=== PATIENT | female | born 1955 | race Two or more races ===

== ENCOUNTER 2024-12-30 12:22 | Emergency (ER) | payer MEDICARE, SELFPAY ==
[2024-12-30 12:27] VITALS: BP 142/87; PULSE 82; TEMP 36.6; O2SAT 98; BMI 34.8
--- NOTE | 2024-12-30 12:34 | CT_ITS ---
The [address] [address] Patient Name: LYNNE DU MRN: [id number] date: 1955 Sex: F Assigned Patient Location: ED.MAIN Current Patient Location: ED.MAIN Accession/Order Number: [id number] Exam Date: 12/30/2024 13:03 Report Date: 12/30/2024 13:47 At the request of: ZONIA MCKAY MD Procedure: CT abdomen pelvis wo con CT ABDOMEN AND PELVIS WITHOUT INTRAVENOUS CONTRAST: CLINICAL HISTORY: Upper abdominal pain with nausea. COMPARISON: Chest performed earlier today TECHNIQUE: Spiral images were obtained through the abdomen and pelvis without intravenous contrast. This CT exam was performed using one or more following dose reduction techniques: Automated exposure control, adjustment of the mA and/or kV according to patient size, or use of iterative reconstruction technique. FINDINGS: Lung Bases: [Bibasilar atelectasis/scarring. Moderate size hiatal hernia.] Organs:Suboptimal evaluation due to lack of IV contrast. Liver demonstrates a small cyst noted. Gallbladder is contracted. Spleen pancreas and adrenal glands all appear unremarkable. Kidneys demonstrate no stone or hydronephrosis. Aorta appears normal in caliber.[ GI: Distal stomach is grossly unremarkable. Small bowel appears nondilated. Appendix is normal. Colonic diverticulosis.[ Pelvis:[Urinary bladder and uterus appear unremarkable. No adnexal mass.] Peritoneum/Retroperitoneum:No free air or free fluid or lymphadenopathy.[ Abd wall/Bones:Abdominal wall demonstrates no acute findings. Osseous structures demonstrate degenerative change.[ CT/CT abdomen pelvis wo con IMPRESSION: No acute process. No evidence of small bowel obstruction. Moderate size hiatal hernia. Colonic diverticulosis. Impression dictated by: Calvin Palomares Jr., D.O. 12/30/2024 1:47 PM Dictation Location: [employer] Electronically authenticated by: [id number] Y Date: 12/30/2024 13:47
--- OUTSIDE RECORDS SUMMARY | 2024-12-30 12:41 | XMS_ITS ---
Author Name Interface, [id number] lity Address [place] breakthroughs[place] [address] [facility] Address [place] breakthroughs[place] [address] Allergies and Adverse Reactions Medication/Group Name Reaction Severity Date No known allergies Plan Date Type Value 07/19/2023 APPOINTMENT LAB 07/19/2023 APPOINTMENT 3M OV/LAB 04/19/2023 APPOINTMENT LAB 04/19/2023 APPOINTMENT 3W OV/LAB 04/19/2023 LABORDER CBC w/auto diff with reflex 04/19/2023 KASEY LARA smear review 04/19/2023 LABORDER CMP 07/19/2023 LABORDER CBC w/auto diff with reflex 07/19/2023 KASEY LARA smear review 07/19/2023 LABORDER CMP Reason for Visit 3M OV/LAB Encounters Date Name 04/19/2023 Osteolytic lesion Diagnostic Results Date Type Test Units Lower Limit Upper Limit Result Flag Comments Status Ordered By Specimen Source Lab Address 04/19 CBC w/aut o diff with refle x WBC x10^3/ uL 4.8 10.8 6.6 FINAL [facility] Whole [facility] [address] [facility] [place] [address] CLIA#45D [id number] 04/19 CBC w/aut o diff with refle x RBC x10^6/ uL 4.2 5.4 4.64 FINAL [facility] Whole Blood [facility]. [address] [facility] [place] [facility] [place] [address] CLIA#45D [id number] 04/19 CBC w/aut o diff with refle x HGB g/dl 12.0 16.0 13.6 FINAL [facility] Whole Blood [facility]. [address] [facility] [place] [address] CLIA#45D [id number] 04/19 CBC w/aut o diff with refle x HCT % 37.0 47.0 42.3 FINAL [facility] Whole Blood [facility]. [address] [place] [address] CLIA#45D [id number] 04/19 CBC w/aut o diff with refle x MCV fL 81.0 99.0 91 FINAL [facility] Whole Blood [facility]. [facility] [address] [place] [address] CLIA#45D [id number] 04/19 CBC w/aut o diff with refle x MCH pg 27.0 31.0 29.3 FINAL [facility] Whole Blood [facility] [address] [facility] [place] [place] [address] CLIA#45D [id number] 04/19 CBC w/aut o diff with refle x MCHC g/dL 33.0 37.0 32.2 Low FINAL [facility] Whole Blood [place] [address] [address] [facility] [place] [place] [address] CLIA#45D [id number] 04/19 CBC w/aut o diff with refle x RDW % 10.5 14.5 13.6 FINAL [facility] Whole Blood [facility] [address] [place] [address] CLIA#45D [id number] 04/19 CBC w/aut o diff with refle x PLT x10^3/ uL 130.0 400.0 313 FINAL [facility] Whole Blood [place] [address] [address] [facility] [place] [address] CLIA#45D [id number] 04/19 CBC w/aut o diff with refle x MPV fL 9.4 12.3 8.4 Low FINAL [facility] Whole Blood [facility] [address] [place] [address] CLIA#45D [id number] 04/19 CBC w/aut o diff with refle x Dominik % % 40.0 77.0 55.1 FINAL [facility] Whole Blood [place] [address] [address] [facility] [place] [place] [address] CLIA#45D [id number] 04/19 CBC w/aut o diff with refle x LY % % 15.0 41.0 31.6 FINAL [facility] Whole Blood [place] [address] [address] [facility] [place] [place] [address] CLIA#45D [id number] 04/19 CBC w/aut o diff with refle x MO % % 3.0 11.0 9.2 FINAL [facility] Whole Blood [place] [address] [address] [facility] [place] [address] CLIA#45D [id number] 04/19 CBC w/aut o diff with refle x EO % % 0.0 3.0 3.3 High FINAL [facility] Whole Blood [place] [address] [address] [facility] [place] [place] [address] CLIA#45D [id number] 04/19 CBC w/aut o diff with refle x BA % % 0.0 1.0 0.5 FINAL [facility] Whole Blood [place] [address] [address] [facility] [place] [place] [address] CLIA#45D [id number] 04/19 CBC w/aut o diff with refle x IG % % 0.0 0.5 0.3 FINAL [facility] Whole Blood [place] [address] [address] [facility] [place] [place] [address] CLIA#45D [id number] 04/19 CBC w/aut o diff with refle x NRBC % % 0.0 0.2 0.00 FINAL [facility] Whole Blood [place] [address] [address] [facility] [place] [place] [address] CLIA#45D [id number] 04/19 CBC w/aut o diff with refle x Dominik # (ANC) 10^3/u L 1.5 6.5 3.7 FINAL [facility] Whole Blood [facility] n. [facility] [address] [place] [address] CLIA#45D [id number] 04/19 CBC w/aut o diff with refle x LY # 10^3/u L 1.2 3.4 2.1 FINAL [facility] Whole Blood [facility] n. [facility] [address] [place] [address] CLIA#45D [id number] 04/19 CBC w/aut o diff with refle x MO # 10^3/u L 0.0 1.0 0.6 FINAL [facility] Whole Blood [facility] n. [facility] [address] [place] [address] CLIA#45D [id number] 04/19 CBC w/aut o diff with refle x EO # 10^3/u L 0.0 0.3 0.2 FINAL [facility] Whole Blood [facility]. [facility] [address] [place] [address] CLIA#45D [id number] 04/19 CBC w/aut o diff with refle x BA # 10^3/u L 0.0 0.2 0.0 FINAL [facility] Whole Blood [facility] n. [facility] [address] [place] [address] CLIA#45D [id number] 04/19 CBC w/aut o diff with refle x IG # 10^3/u L 0.0 0.03 0.02 FINAL [facility] Whole Blood [facility] [address] [place] [address] CLIA#45D [id number] 04/19 CBC w/aut o diff with refle x NRBC, absol [place], x 10^3/ uL 10^3/u L 0.0 0.01 0.00 FINAL [facility] Whole Blood [place] [address] [address] [place] [address] CLIA#45D [id number] 04/19 CMP Sodiu m mmol/L 136.0 145.0 139 FINAL [facility] Plasma [facility] n. [facility] [address] [facility] [place] [place] [address] CLIA#45D [id number] 04/19 CMP Potas sium mmol/L 3.5 5.1 4.9 FINAL [facility] Plasma [facility] n. [facility] [address] [facility] [place] [place] [address] CLIA#45D [id number] 04/19 CMP Chlor mikey mmol/L 97.0 107.0 102 FINAL [facility] Plasma [facility]. [facility] [address] [facility] [place] [address] CLIA#45D [id number] 04/19 CMP CO2 mmol/L 21.0 32.0 30.40 FINAL [facility] Plasma [facility]. [facility] [address] [facility] [place] [address] CLIA#45D [id number] 04/19 CMP Anion gap 11.50 FINAL [facility] Plasma [facility]. [facility] [address] [facility] [place] [address] CLIA#45D [id number] 04/19 CMP BUN mg/dl 7.0 18.0 29 High FINAL [facility] Plasma [facility]. [facility] [address] [facility] [place] [place] [address] CLIA#45D [id number] 04/19 CMP Creat inine , mg/dL mg/dl 0.55 1.3 1.21 FINAL [facility] Plasma [facility] n. [facility] [address] [facility] [place] [address] CLIA#45D [id number] 04/19 CMP GFR estim ate ml/min /1.73m ^2 49 Low Result based on the eGFR 2020 calculati on.60-89 mL/min/1. 73m^2 without kidney damage may be normal.60 -89 mL/min/1. 73m^2 for 3 months or more, along with kidney damage, may indicate early kidney disease.C alculatio n modified to the 2020 formula effective 07/30/22. FINAL [facility] Plasma [facility] n. [address] [place] [address] CLIA#45D [id number] 04/19 CMP BUN/C reati nine ratio ratio 23.97 FINAL [facility] Plasma [facility] n. [address] [facility] [place] [place] [address] CLIA#45D [id number] 04/19 CMP Gluco se mg/dl 74.0 106.0 89 FINAL [facility] Plasma [facility] n. [address] [facility] [place] [address] CLIA#45D [id number] 04/19 CMP Calci um mg/dl 8.5 10.1 10.10 FINAL [facility] Plasma [facility] n. [address] [facility] [place] [place] [address] CLIA#45D [id number] 04/19 CMP Album in g/dl 3.4 5.0 3.7 FINAL [facility] Plasma [facility] n. [address] [facility] [place] [address] CLIA#45D [id number] 04/19 CMP Alkal ine phosp hatas e U/L 46.0 116.0 121 High FINAL [facility] Plasma [facility] n. [address] [facility] [place] [place] [address] CLIA#45D [id number] 04/19 CMP AST/S GOT U/L 15.0 37.0 35 FINAL [facility] Plasma [facility] n. [address] [facility] [place] [address] CLIA#45D [id number] 04/19 CMP Total prote in g/dL 6.4 8.2 8.40 High FINAL [facility] Plasma [facility] n. [address] [place] [address] CLIA#45D [id number] 04/19 CMP Bilir ubin, total mg/dL 0.2 1.0 0.60 FINAL [facility] Plasma [facility] n[address] [place] [address] CLIA#45D [id number] 04/19 CMP Globu ernesto g/dl 2.2 4.2 4.70 High FINAL [facility] n. [address] [place] [address] CLIA#45D [id number] 04/19 CMP A/G ratio Ratio 0.8 2.0 0.8 FINAL [facility] n. [address] [place] [address] CLIA#45D [id number] 04/19 CMP ALT/S GPT U/L 14.0 59.0 31 FINAL [facility] n. [address] [place] [address] CLIA#45D [id number] Medications Date Name Route Dose Frequency Instructions Start Date End Date Status [place] 1-QIW-INX-Fish Oil Oral Delayed Release 300 mg-1,000 mg orally 3.0 daily active Esomeprazole (Magnesium) Oral Delayed Release Capsule orally 40.0 mg daily active Lisinopril Oral orally 40.0 mg daily active Amlodipine Oral orally 5.0 mg daily a ctive Levocetirizine Oral orally 5.0 mg daily active Lidocaine-Priloca ine Topical Cream 2.5 %-2.5 % topically 1.0 once active Atorvastatin Oral orally 40.0 mg daily active Hydroxyzine HCl Oral orally 50.0 mg 3 times per day prn itching active Problems Diagnosis Status Date of Diagnosis Resolution Date Osteolytic lesion Active Vital Signs Date Type Value 04/19/2023 Body Temperature 98.00 04/19/2023 Heart Beat 96.00 04/19/2023 Respiratory Rate 18.00 04/19/2023 Intravascular Systolic 177 04/19/2023 Intravascular Diastolic 97 04/19/2023 BSA 1.82 04/19/2023 Weight 184.20 04/19/2023 Height 61.00 04/19/2023 BMI 34.80 04/19/2023 Pain Scale 0.00 Notes Section * HemOnc Follow Up - [facility] [address] [address] P: F: PATIENT: LYNNE DU : 1955 Date of Service: 04/19/2023 Referring Provider: Bhumi Moreland MD?? Chief Complaint: Principal Diagnosis: * Osteolytic lesion ( ICD-10:M86.68 ;Other chronic osteomyelitis, other site ) Diagnosis*: Treatment History: ? Treatment History*: Pathology: History of Present Illness: Patient with past medical history significant for hyperlipidemia, hypertension and diabetes mellitus.?? It seems the patient was admitted to the hospital at [facility]??03/05/2023.?? The scan showed possibility of lytic lesion to the left??iliac bone. Bone scan was done which was negative. 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 ??SPEP, UPEP and free light chain was done which was negative. ??With the patient does not suspect having multiple myeloma. Patient denies any hemoptysis, hematemesis, rectal bleeding, ??or hematuria. The patient denies any dizziness, chills, fever, or night sweats. The patient denies any diplopia, hearing problems, oropharyngeal soreness, or jaundice, ??chest pain, ??palpitations, and shortness of breath or cough, dysphagia, nausea, vomiting, constipation, diarrhea, abdominal pain, or distention, dysuria, incontinence, or frequency. Interval History: Past Medical History: Lytic Lesion?? Hypercalcemia Hyperlipidemia?? Diabetes Mellitus II?? Hypertension?? Obesity?? Osteopenia?? History of Newberry's Palsy? Acute Kidney Failure?? Gastritis?? Past Surgical History: * 2003, Procedure: Hernia repair, NOS Past Surgical History*: MANAGER OF PHARMACY History: Medications: * Amlodipine Oral 5 mg orally daily * Atorvastatin Oral 40 mg orally daily * Hydroxyzine HCl Oral 50 mg orally 3 times per day prn itching * Lisinopril Oral 40 mg orally daily * Esomeprazole (Magnesium) Oral Delayed Release Capsule 40 mg orally daily * Levocetirizine Oral 5 mg orally daily * Lidocaine-Prilocaine Topical Cream 2.5 %-2.5 % topically once * Fish Oil ([place] 4-ZBE-WVH-Fish Oil Oral Delayed Release 300 mg-1,000 mg) orally daily Medications reviewed and reconciled with patient. 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 Alcohol Rare?? Denies Drugs?? Family History: * Father: * Mother: * Sister 1: - Kidney cancer * Son 1: Alive and Well - Thyroid cancer Family History*: ROS: GENERAL: The patient denies any dizziness, chills, fever, or night sweats. HEENT: The patient denies any diplopia, hearing problems, oropharyngeal soreness, or jaundice. CARDIOPULMONARY: The patient denies any chest pain, palpitations, and shortness of breath or cough. GASTROINTESTINAL: The patient denies any dysphagia, nausea, vomiting, constipation, diarrhea, abdominal pain, or distention. GENITOURINARY: No dysuria, incontinence, or frequency. MUSCULOSKELETAL: The patient denies muscle or joint aches. The patient denies pitting edema. SKIN: The patient denies any rash or pruritus. NEUROLOGICAL: The patient denies any headache or double vision. Patient with difficulty hearing Vitals: Height: 61 in; Weight: 184.2 lb; Blood pressure: 177/97, Pulse: 96, Temperature: 98 F, Respirations: 18, Pain Scale: 0 Karnofsky: Not Assessed Physical Exam: GENERAL: ??No acute respiratory distress. VITAL SIGNS: ??Reviewed and stable. HEENT: ??The sclerae are clear. ??The pupils are equal and reactive to light. ??The oropharyngeal cavity is within normal limits. NECK: ??Supple without lymphadenopathy. CHEST: Lung is clear bilaterally there is no wheezing or crackles. HEART: ??Sounds are regular and rhythmic. ABDOMEN: ??No guarding or rigidity. ??Bowel sounds positive. EXTREMITIES: ??No pitting edema. ??No petechial lesions or bruises. SKIN: ??No bruises, rash, or petechial lesions. NEUROLOGICAL: ??The patient is alert and oriented. ??No focal deficits. ??Muscle strength is 5/5. LYMPH NODES: ??There is no lymphadenopathy could be felt in the neck, supraclavicular, or axillary. Labs: CBC Lab Results 04/19/2023 04/03/2023 03/27/2023 CBC WBC x 10^3/uL 6.6 7.0 RBC x 10^6/uL 4.64 4.33 NRBC, absolute, x 10^3/uL 0.00 0.00 NRBC % /100 wbc 0.00 0.00 HGB g/dL 13.6 12.7 HCT % 42.3 39.0 MCV fL 91 90 MCH pg 29.3 29.3 MCHC g/dL 32.2 (L) 32.6 (L) RDW % 13.6 13.8 PLT x 10^3/uL 313 305 MPV fL 8.4 (L) 8.4 (L) Dominik % 55.1 67.8 LY % 31.6 22.3 MO % 9.2 7.1 EO % 3.3 (H) 1.7 IG % 0.3 0.4 Dominik # (ANC) x 10^3/uL 3.7 4.8 BA % 0.5 0.7 MO # x 10^3/uL 0.6 0.5 EO # x 10^3/uL 0.2 0.1 BA # x 10^3/uL 0.0 0.1 IG # x 10^3/uL 0.02 0.03 LY # x 10^3/uL 2.1 1.6 Chemistries Lab Results 04/19/2023 04/03/2023 03/27/2023 Chemistries Glucose mg/dL 89 125 (H) BUN mg/dL 29 (H) 18 Creatinine, mg/dL 1.21 1.05 BUN/Creatinine ratio 23.97 17.14 Sodium mmol/L 139 140 Potassium mmol/L 4.9 3.5 Chloride mmol/L 102 101 CO2 mmol/L 30.40 29.00 Anion gap 11.50 13.50 Calcium mg/dL 10.10 10.00 Albumin g/dL 3.7 3.6 Total protein g/dL 8.40 (H) 8.10 Globulin g/dL 4.70 (H) 4.50 (H) A/G ratio 0.8 0.8 Bilirubin, total mg/dL 0.60 0.60 Alkaline phosphatase U/L 121 (H) 105 AST/SGOT U/L 35 31 ALT/SGPT U/L 31 28 GFR estimate mL/min/1.73m2 49 (L) 58 (L) Tumor Markers None Today Labs*: Imaging: Problem List: * Osteolytic lesion ( ICD-10:M86.68 ;Other chronic osteomyelitis, other site ) Impression: 1. ??CT scan of the abdomen done 03/05/2023 showing lytic lesion to the left iliac bone.?? Bone scan was done which was negative., ??SPEP, UPEP and free light chain was done which was negative for any monoclonal protein. 2.?? Hypertension 3.?? Hyperlipidemia 4. ??Diabetes mellitus Plan: 1.?? Peripheral blood smear showed red blood cells to be normocytic normochromic. ??There was no fragment cell or schistocyte. ??There is no teardrop cell.?There is no pelger-Huet cell. ??White blood cell with no blasts. ??Platelet was normal in morphology and count. 2. ??There was hypersegmented neutrophils. ??This patient to continue on folic acid 1 mg p.o. dailyand vitamin B12 1000 mcg p.o. daily. 3.?? 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 ??SPEP, UPEP and free light chain was done which was negative forany monoclonal protein. ??There is no need for bone marrow biopsy to be done. 4. ??I reviewed the results of CT scan of the abdomen and??chest. ??There is a lytic lesion??to theleft iliac crest. ??There is smaller??lesion to the??right iliac crest.?? Which could be consistentwith osteoporosis or Paget disorder. 5. ??This patient to have bone density scan to be done.?? This patient could have osteopenia or osteoporosis and the lesion in the bone could be due to that. ??So we will follow-up with the result. 6. ??This patient to be on calcium and vitamin D 7. ??There is no need for any more investigation at this time. ??Patient to follow-up with me in 6 months. 8. ??We explained to the patient that if she have severe pain to the lower back or??if she is losing weight unexpectedly or for night sweats to follow-up with us as soon as possible. 9.?? Patient to follow-up with primary care physician for other comorbidity. Procedure: . This dictation was prepared using [employer] voice recognition software. As a result, errors may occur. When identified, these errors have been corrected. While every attempt is made to correct errors during dictation, errors may still exist. Sergio Castillo MD ? Send copy of note to: Bhumi Moreland MD?? . 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 Temperature: 98 F (36.67 C) tympanic. Pulse: 96 (/min) brachial sitting. Blood pressure: 177/97 (mm Hg) right arm Regular. Entered by Rita Baugh LPN 04/19/2023 08:43 Time: 08:18. Weight: 184.2 lb (83.55 kg). Height: 61 in (154.94 cm). BMI: 34.8 (kg/m2) . BSA: 1.82 (m2) . Temperature: 98 F (36.67 C). Pulse: 96 (/min) . Respirations: 18 (/min) . Blood pressure: 177/97 (mm Hg). Pain Scale: 0. Entered by Autumn Walton 04/19/2023 08:19 Patient Assessment : Positive results Assessment : Labs Verified: Yes, Alert, oriented with appropriate behavior. Negative results Assessment : Gait Changes. Denies Neuropathy , Pain -0-No pain, Fatigue , Anxiety/Depression , Fever, Chills or Night Sweats ,Signs of Infection , Skin Changes , Dizziness , Headaches , Nausea , Breathing Changes , Cough , Mouth Sores/Stomatitis/Mucositis , Changes in Appetite , Vomiting , Diarrhea , Constipation , Urinary Changes , Bleeding . Entered By Rita Baugh LPN on 08:43 Free Text Note : follow up as per patient voiced no concerns at this time of visit/rglvn Entered By Rita Baugh LPN on 08:43
--- OUTSIDE RECORDS SUMMARY | 2024-12-30 12:41 | XMS_ITS | Clinical Summary ---
Author Organization [facility] Address [address] [place] [address] Phone Care Team Providers Care Doll Maker Name Role Phone Bhumi Moreland MD Primary Care Provider [phone] Allergies No known active allergies Family History Medical History Relation Name Comments Kidney cancer Sister Thyroid cancer Son Relation Name Status Comments Sister Son Alive Social History Tobacco Use Types Packs/Day Years Used Date Smoking Tobacco: Never Assessed Sex and Gender Information Value Date Recorded Sex Assigned at Not on file Gender Identity Not on file Sexual Orientation Not on file Plan of Treatment Not on file Care Teams Doll Maker Relationship Specialty Start Date End Date Bhumi Moreland MD [address] [place] [address] PCP - General Family Medicine 04/15/24
--- OUTSIDE RECORDS SUMMARY | 2024-12-30 12:41 | XMS_ITS | CCD ---
Author Name Interface, [id number] lity Address [place] [address] Organization [facility] Address [place] [address] Care Team Providers Care Certified Nurses Aide Name Role Phone Sergio Castillo MD Unavailable Unavailable Allergies and Adverse Reactions Medication/Group Name Reaction Severity Date No known allergies Reason for Visit 3M OV/LAB Medications Date Name Route Dose Frequency Instructions Start Date End Date Status Esomeprazole (Magnesium) Oral Delayed Release Capsule orally 40.0 mg daily active Hydroxyzine HCl Oral orally 50.0 mg 3 times per day prn itching active Amlodipine Oral orally 5.0 mg daily a ctive Ewing 0-BZZ-OXG-Fish Oil Oral Delayed Release 300 mg-1,000 mg orally 3.0 daily active Levocetirizine Oral orally 5.0 mg daily active Atorvastatin Oral orally 40.0 mg daily active Lidocaine-Priloca ine Topical Cream 2.5 %-2.5 % topically 1.0 once active Lisinopril Oral orally 40.0 mg daily active Problems Diagnosis Status Date of Diagnosis Resolution Date Osteolytic lesion Active Social History Date Name Value 03/27/2023 Sex Female
--- NOTE | 2024-12-30 12:44 | ECG_ITS ---
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
--- NOTE | 2024-12-30 12:45 | XR_ITS ---
[address] [address] Patient Name: LYNNE DU MRN: [id number] date: 1955 Sex: F Assigned Patient Location: ED.MAIN Current Patient Location: ED.MAIN Accession/Order Number: [id number] Exam Date: 12/30/2024 13:03 Report Date: 12/30/2024 13:15 At the request of: ZONIA MCKAY MD Procedure: XR chest 1V Single view chest: CLINICAL HISTORY: sob COMPARISON: None FINDINGS: Heart appears normal in size. No lung consolidation pneumothorax pleural effusion or free air. Hiatal hernia. XR/XR chest 1V IMPRESSION: NO ACUTE FINDINGS. Impression dictated by: Calvin Palomares Jr., DKeatonOKeaton 12/30/2024 1:15 PM Dictation Location: [place] [address] Electronically authenticated by: [id number] Y Date: 12/30/2024 13:15
[2024-12-30 13:10] LABS: Hematocrit 37.9 % (36.0-48.0); Hemoglobin 12.8 g/dL (12.0-16.0); Immature Granulocytes Abs Auto 0.03 10^3/uL (0.00-0.03); Immature Granulocytes Pct Auto 0.4 % (0.0-0.5); Lymphocytes Absolute Auto 1.2 10^3/uL (1.2-3.8); Mean Corpuscular HGB Conc 33.8 g/dL (29.9-35.2); Mean Corpuscular Hemoglobin 29.8 pg (26.7-34.0); Mean Corpuscular Volume 88.3 fL (81.0-99.0); Platelet Count 285 10^3/uL (150-450); Red Blood Count 4.29 10^6/uL (4.20-5.40); White Blood Count 7.9 10^3/uL (4.0-11.0)
[2024-12-30 13:25] LABS: Alanine Aminotransferase 25 U/L (14-59); Albumin Globulin Ratio 0.7; Albumin Level 3.3 g/dL (3.4-5.0); Alkaline Phosphatase 113 U/L (46-116); Anion Gap 16.3; Aspartate Amino Transferase 42 U/L (15-37); Blood Urea Nitrogen 24.0 mg/dL (7.0-18.0); Calcium 9.3 mg/dL (8.5-10.1); Carbon Dioxide 23.9 mmol/L (21.0-32.0); Chloride 103 mmol/L (98-107); Estimated GFR (African America 47 (>=60 mL/min/1.73m^2); Estimated GFR (Non-African Ame 38 (>=60 mL/min/1.73m^2); Globulin 4.6 g/dL; Glucose 98 mg/dL (74-106); Potassium 5.2 mmol/L (3.5-5.1); Sodium 138 mmol/L (136-145); Total Protein 7.9 g/dL (6.4-8.2)
--- NOTE | 2024-12-30 13:36 | ED.ABDPAIN1 ---
HPI - Abdominal Pain General Chief Complaint: Abdominal Pain Stated Complaint: ABDOMINAL PAIN Time Seen by Provider: 12/30/24 12:34 Source: patient Mode of arrival: walk-in Limitations: no limitations History of Present Illness HPI narrative: The patient is coming to the ER with multiple concerns as she is visiting here from [place]. She came here almost 7 days ago by a road trip. The patient apparently also had a surgery for her hiatal hernia in September. She mentioned that for the last 7 days she has been having some epigastric discomfort and pain associated with shortness of breath and sense of difficulty breathing on minimal activity The patient also have some decreased p.o. intake ,she does not have any constipation and she regularly have bowel movement daily The patient denies any fever chills any coughing When pointing to her abdomen the patient is pointing to the epigastric area for the pain although the patient mentioned that the pain is crampy-like and is not present all the time. The patient had decreased energy for the last week as well and tiredness with minimal activity Related Data Home Medications ?Medication ?Instructions ?Recorded ?Confirmed atorvastatin 40 mg tablet 40 mg PO DAILY 12/30/24 12/30/24 famotidine 40 mg tablet 40 mg PO DAILY 12/30/24 12/30/24 levocetirizine 5 mg tablet 5 mg PO DAILY 12/30/24 12/30/24 lisinopril 40 mg tablet 40 mg PO DAILY 12/30/24 12/30/24 pantoprazole 40 mg tablet,delayed 40 mg PO DAILY 12/30/24 12/30/24 release Allergies Allergy/AdvReac Type Severity Reaction Status Date / Time No Known Drug Allergies Allergy Verified 12/30/24 12:27 Review of Systems ROS Status of ROS 10 or more systems reviewed and unremarkable except as noted in history and below PFSH PFS Social History Little interest or pleasure in doing things: not at all Feeling down, depressed, or hopeless: not at all Exam Narrative Exam Narrative: Nurses notes and vital signs reviewed and patient is not hypoxic. General: Well-appearing and in no apparent distress. Skin: Warm, dry, no pallor noted. No rash. Head: Normocephalic, atraumatic. Neck: Supple, non-tender. Cardiovascular: Regular Rate and Rhythm without murmur, gallop or rub. Respiratory: No accessory muscle use or respiratory distress. Lungs are clear to auscultation, no wheezing, rales or rhonchi Chest Wall: no tenderness Back: No midline thoracic or lumbar vertebral tenderness. No CVA tenderness Musculoskeletal: normal ROM, no calf or popliteal tenderness, no lower extremity edema/swelling GI: Abdomen is soft, non-distended. Normal bowel sounds. No masses appreciated. Epigastric and periumbilical area tenderness noted on examination Neurological: A&O x4. No cranial nerve dysfunction observed. No truncal ataxia. Moves all extremities. Sensation intact. Psychiatric: Cooperative and interactive. Normal mood and affect. Constitutional Vital Signs, click to edit/add: Last Vital Signs Temp 98.0 F 12/30/24 16:15 Pulse 78 12/30/24 16:15 Resp 18 12/30/24 16:15 BP 124/76 12/30/24 16:15 Pulse Ox 98 12/30/24 16:15 O2 Del Method Room Air 12/30/24 16:15 Course Vital Signs Vital signs: Vital Signs Temperature 97.8 F 12/30/24 12:27 Pulse Rate 82 12/30/24 12:27 Respiratory Rate 18 12/30/24 12:27 Blood Pressure 142/87 H 12/30/24 12:27 Pulse Oximetry 98 12/30/24 12:27 Temperature 98.0 F 12/30/24 16:15 Pulse Rate 78 12/30/24 16:15 Respiratory Rate 18 12/30/24 16:15 Blood Pressure 124/76 12/30/24 16:15 Pulse Oximetry 98 12/30/24 16:15 Oxygen Delivery Method Room Air 12/30/24 16:15 MDM - Abdominal Pain MDM Narrative Medical decision making narrative: The patient EKG showing atrial rhythm with a T wave inversion in lead aVL no ST elevation or depression The patient presentation was concerning for multiple pathology especially with the patient having epigastric discomfort and the fact that she has been having shortness of breath and she presented to us tachycardic heart rate was 111 at bedside when I was evaluating the patient The patient troponin was negative and it was repeated twice both of them were negative The patient also had a CBC showing no leukocytosis chemistry was showing some acute kidney injury and potassium that was elevated although is not sure if it is hemolyzed but after providing the patient with IV fluid the patient repeated potassium with normal and kidney function improved Patient also had a CT abdomen pelvis without contrast that showed no acute significant pathology and the patient also had a CT angio of the chest to rule out any PE because of the patient history of long trip and the fact that she has been having shortness of breath on exertion and the fact that she had elevated D-dimer CT angio of the chest showed no acute pathology The patient does have a history of acid reflux and she has not been taking her medication with the pain being in the epigastric area this could be secondary to gastritis as well although the patient shortness of breath cannot be explained with the gastritis The patient yet was started again on her Protonix and Pepcid and instructed on proper intake of those medication The patient was feeling much better after initial treatment. She also was advised to follow-up with her primary care doctor within few days for further evaluation of her kidney function and to continue hydration especially that she received contrast material but we had to rule out PE with her current presentation that was concerning for PE with elevated D-dimer and the long trip from [place] to here Patient to continue hydration The patient is to follow up with primary care physician in next 2-3 days or to return to the emergency department should any of the signs or symptoms worsen or new symptoms develop. The patient agrees with the following Diagnosis and Treatment plan and the patient will be discharged home. Lab Data Labs: Lab Results 12/30/24 12/30/24 12/30/24 Range/Units 13:00 13:21 15:12 WBC 7.9 (4.0-11.0) 10^3/uL RBC 4.29 (4.20-5.40) 10^6/uL Hgb 12.8 (12.0-16.0) g/dL Hct 37.9 (36.0-48.0) % MCV 88.3 (81.0-99.0) fL MCH 29.8 (26.7-34.0) pg MCHC 33.8 (29.9-35.2) g/dL RDW 13.5 (11.0-15.0) % Plt Count 285 (150-450) 10^3/uL MPV 9.3 L (9.5-13.5) fL Neut % (Auto) 75.2 H (43.0-75.0) % Lymph % (Auto) 15.2 L (20.5-60.0) % Cavalier % (Auto) 7.9 (1.7-12.0) % Eos % (Auto) 0.9 (0.9-7.0) % Baso % (Auto) 0.4 (0.2-2.0) % Neut # (Auto) 5.9 (1.4-6.5) 10^3/uL Lymph # (Auto) 1.2 (1.2-3.8) 10^3/uL Cavalier # (Auto) 0.6 (0.3-0.8) 10^3/uL Eos # (Auto) 0.1 (0.0-0.7) 10^3/uL Baso # (Auto) 0.0 (0.0-0.1) 10^3/uL Abs Immat Gran (auto) 0.03 (0.00-0.03) 10^3/uL Imm/Tot Granulo (auto) 0.4 (0.0-0.5) % D-Dimer 1.76 H* (<=0.59) mg/L FEU Sodium 138 138 (136-145) mmol/L Potassium 5.2 H 4.9 (3.5-5.1) mmol/L Chloride 103 104 (98-107) mmol/L Carbon Dioxide 23.9 26.1 (21.0-32.0) mmol/L Anion Gap 16.3 12.8 BUN 24.0 H 23.0 H (7.0-18.0) mg/dL Creatinine 1.36 H 1.26 H (0.55-1.02) mg/dL Est GFR ( Amer) 47 L 51 L (>=60 mL/min/1.73m^2) Est GFR (Non-Af Amer) 38 L 42 L (>=60 mL/min/1.73m^2) BUN/Creatinine Ratio 17.6 18.3 Glucose 98 74 (74-106) mg/dL Lactate 1.8 (0.4-2.0) mmol/L Calcium 9.3 9.0 (8.5-10.1) mg/dL Total Bilirubin 0.8 (0.2-1.0) mg/dL AST 42 H (15-37) U/L ALT 25 (14-59) U/L Alkaline Phosphatase 113 (46-116) U/L Troponin I High Sens 12.4 15.1 (4.0-51.3) pg/mL Total Protein 7.9 (6.4-8.2) g/dL Albumin 3.3 L (3.4-5.0) g/dL Globulin 4.6 g/dL Albumin/Globulin Ratio 0.7 Discharge Plan Discharge Chief Complaint: Abdominal Pain Clinical Impression: Gastritis, SOB (shortness of breath) Patient Disposition: Home, Self-Care Time of Disposition Decision: 16:03 Condition: Good Prescriptions / Home Meds: No Action pantoprazole 40 mg tablet,delayed release (DR/EC) 40 mg PO DAILY famotidine 40 mg tablet 40 mg PO DAILY levocetirizine 5 mg tablet 5 mg PO DAILY atorvastatin 40 mg tablet 40 mg PO DAILY lisinopril 40 mg tablet 40 mg PO DAILY Print Language: Chilean Instructions: Gastritis (DC), Diet for Stomach Ulcers and Gastritis (ED) Referrals: Physician,Non-Staff, MD [Primary Care Provider] - 1 week Discharge Date/Time: 12/30/24 16:17
[2024-12-30] MEDS: KETOROLAC TROMETHAMINE 30 MG/ML VIAL 15 MG IVP (13:38)
[2024-12-30] MEDS: FAMOTIDINE/PF 20 MG/2 ML VIAL IV (13:38)
[2024-12-30] MEDS: 0.9 % SODIUM CHLORIDE 1,000 ML 1000 ML IV (13:45)
[2024-12-30 13:47] LABS: Lactate/Lactic Acid 1.8 mmol/L (0.4-2.0)
--- NOTE | 2024-12-30 13:55 | CT_ITS ---
The [address] [address] Patient Name: LYNNE DU MRN: [id number] date: 1955 Sex: F Assigned Patient Location: ER Current Patient Location: Accession/Order Number: [id number] Exam Date: 12/30/2024 14:08 Report Date: 12/30/2024 14:39 At the request of: ZONIA MCKAY MD Procedure: CT angio chest CT ANGIOGRAM OF THE CHEST, PULMONARY EMBOLISM PROTOCOL: CLINICAL INFORMATION: Elevated d-dimer. Shortness of breath. COMPARISON: None. TECHNIQUE: Following intravenous injection of contrast CT scans of the chest were obtained using pulmonary embolism protocol. Coronal and sagittal reconstructed images, as well as volume rendered CT pulmonary angiographic images were also submitted.The CT exam was performed using one or more of the following dose reduction techniques: Automated exposure control, adjustment of the MA and/or Kv according to patient size, or use of the iterative reconstruction technique. FINDINGS: Pulmonary Vasculature: Contrast bolus is adequate for evaluation of pulmonary embolism. Pulmonary trunk appears nondilated. No filling defects are identified to suggest pulmonary embolism. Mediastinum : Thoracic aorta is normal in caliber. No pericardial effusion. No lymphadenopathy. The esophagus is grossly unremarkable. Lungs: Bibasilar atelectasis/scarring. No consolidation pneumothorax or pleural effusion. Atelectasis/scarring involving the lingula. Upper abdomen: Moderate size hiatal hernia. Soft tissue/bones: Soft tissues surrounding the chest wall demonstrate no acute findings. Osseous structures demonstrate degenerative change. CT/CT angio chest IMPRESSION: NO EVIDENCE OF ACUTE PULMONARY EMBOLISM OR PROCESS. Impression dictated by: Calvin Palomares Jr., D.O. 12/30/2024 2:39 PM Dictation Location[facility] Electronically authenticated by: [id number] Y Date: 12/30/2024 14:39
[2024-12-30 15:38] LABS: Anion Gap 12.8; Blood Urea Nitrogen 23.0 mg/dL (7.0-18.0); Calcium 9.0 mg/dL (8.5-10.1); Carbon Dioxide 26.1 mmol/L (21.0-32.0); Chloride 104 mmol/L (98-107); Estimated GFR (African America 51 (>=60 mL/min/1.73m^2); Estimated GFR (Non-African Ame 42 (>=60 mL/min/1.73m^2); Glucose 74 mg/dL (74-106); Potassium 4.9 mmol/L (3.5-5.1); Sodium 138 mmol/L (136-145)
[2024-12-30 16:15] VITALS: BP 124/76; PULSE 78; TEMP 36.7; O2SAT 98
== END 2024-12-30 16:17 | disposition home or self-care (01) ==
PROVIDERS: Emergency Provider Emergency Medicine
DX: K29.70 Gastritis, unspecified, without bleeding (principal); R06.02 Shortness of breath; R79.89 Other specified abnormal findings of blood chemistry; K21.9 Gastro-esophageal reflux disease without esophagitis
CPT/HCPCS: 36415; 71045; 71275; 74176; 80048; 80053; 83605; 84484; 85025; 85378; 93005; 96361; 96374; 96375; 99285; J1885; J2405; J3490; Q9967